=== PATIENT | female | born 1945 | race Hispanic/Latino ===

== ENCOUNTER 2020-05-08 17:12 | Emergency (ER) | payer OTHER ==
--- OUTSIDE RECORDS SUMMARY | 2020-05-08 17:15 | XMS REPORT | Continuity of Care Document ---
:1945 Author Organization [facility] t Address [address] [place] [address] Dr. Clemente. [address] [place] [address] Care Team Providers Name Role Phone DR Jyoti BAUTISTA Attending Clinician Unavailable Singer BRAY Attending Clinician Yudelka Crenshaw Attending Clinician Doctor Unassigned, Name Attending Clinician Unavailable Huey ALVARADO Attending Clinician DR Jyoti BAUTISTA Admitting Clinician Unavailable Problems This patient has no known problems. Allergies, Adverse Reactions, Alerts This patient has no known allergies or adverse reactions. Medications This patient has no known medications. Procedures This patient has no known procedures. Encounters Start End Encounter Admission Attending Care Care Encounter Source Date/Time Date/Time Type Type Clinicians Facility Department ID 2017-12-13 Inpatient C [facility] [id number] [place] 08:45:00 [facility] 2020-05-07 2020-05-07 Emergency Singer NYLUÍS [id number] 16:51:00 18:39:00 Lacho Trivedi [id number] Yazmin [id number] [place] [address] [id number] 2020-05-04 2020-05-04 Emergency ASIA Triplett [id number] 10:10:00 14:21:00 Bianca Trivedi [id number] [place] [id number] [place] [address] [id number] 2019-12-31 2019-12-31 Jameson BENZ [id number] 00:00:00 00:00:00 Only Unassigned, REZA [id number] [facility] [id number] 2019-12-17 2019-12-17 Office Huey [facility] [id number] 13:49:35 14:22:09 Visit Segun Trivedi [id number] [place] [id number] Rajesh [id number] [facility] 2017-12-13 2017-12-13 [id number] [place] 08:10:00 23:59:00 [facility] 2017-12-10 2017-12-10 [facility] [id number] [place] 10:42:00 23:59:00 [facility] Results Test Description Test Time Test Comments Results Result [facility] e Comments MRA HEAD W/O 2017-11-26 MRA brain without CONTRAST 8 contrastLocation code: 10:40:40 [id number] history: Paresthesia of the skinTechnique: 3-D [id number] MR angiography of the intracranial circulationwas performed without contrast. Volume rendered 3-D reformatted images of thevessels were obtained from source data. Findings:The terminal portions of the internal carotid arteries bifurcate into normalanterior and middle cerebral arteries. The anterior communicating artery ispatent. The basilar artery is normal in caliber and contour and terminates innormal-appearing posterior cerebral arteries. The posterior communicatingarteries are patent bilaterally. There is no focal stenosis, major branchocclusion, aneurysm, or vascular malformation.Impression: No acute abnormality. MRI BRAIN W/ AND 2017-11-26 MRI brain with and without W/O CONTRAST 8 contrastLocation code: 10:14:38 [id number] history: R20.2: PARESTHESIA OF SKINComparison: NoneTechnique: Multiplanar multisequence MR imaging of the brain was performed withand without contrast. Findings: There is no area of restricted diffusion to suggest acute or recentinfarct. There is mild generalized volume loss. Mild increased T2/FLAIR signalwithin the periventricular white matter is noted compatible with chronic smallvessel disease. There is no acute intracranial hemorrhage or extra-axial collection. There isno abnormal enhancement, mass, or lesion. There is no hydrocephalus,intracranial edema, or midline shift. The posterior fossa and internal auditory canals are unremarkable. The orbits,globes, sinuses, and skull base are unremarkable.Impression: Mild deep white matter chronic small vessel disease with otherwise no acuteintracranial abnormality. COMPREHENSIVE METABOLIC PEREIRA 2017-12-10 11:34:00 Test Item Value Reference Range Interpretation Comme nts GLUCOSE (test code = 06D) 91 mg/dL 75-100 SODIUM (test code = 01A) 139 mmol/L 136-145 POTASSIUM (test code = 01B) 3.9 mmol/L 3.6-5.1 CHLORIDE (test code = 04A) 106 mmol/L 98-107 CO2 (test code = 02A) 26 mmol/L 22-32 ANION GAP (test code = ANG) 10.9 mmol/L BUN (test code = 05D) 16 mg/dL 7-18 CREATININE (test code = 03E) 0.7 mg/dL 0.4-1.1 BUN/CREA (test code = BCR) 22 12-20 H CALCIUM (test code = 09D) 8.6 mg/dL 8.3-9.5 BILI TOTAL (test code = 11A) 0.4 mg/dL 0.2-1.0 PROTEIN (test code = 07D) 8.0 g/dL 6.4-8.2 ALBUMIN (test code = 08D) 3.8 g/dL 3.5-4.8 GLOBULIN (test code = GLB) 4.2 g/dL 1.5-3.8 H ALB/GLOB (test code = AGRR) 0.9 1.0-2.6 L ALK PHOS (test code = 35A) 78 IU/L 42-121 AST (test code = 30A) 16 IU/L <=42 ALT (test code = 31A) 20 IU/L <=78 THYROID PANEL/SCREEN (TSH)2017-12-10 11:33:00 Test Item Value Reference Range Interpretation Comments TSH (test code = A57) 2.380 uIU/mL 0.358-3.740 LIPID [id number] 11:31:00 Test Item Value Reference Range Interpretation Comments CHOLESTROL (test code = 44A) 268 mg/dL 140-200 H TRIGLYCERI (test code = 42B) 133 mg/dL <=149 HDL (test code = 83D) 56.0 mg/dL 40.0-60.0 LDL (test code = 34B) 192 mg/dL <=99 H CHL/HDL (test code = CHR) 4.8 0.0-3.4 H [id number] 11:20:00 Test Item Value Reference Range Interpretation Comments Hb A1C % (test code = HBA) 5.7 % 4.2-6.3 CBC (INCLUDES AUTOMATED DIFFERENTIAL)2017-12-10 11:03:00 Test Item Value Reference Range Interpretation Comments WBC (test code = WBC) 6.8 10\S\3/uL 4.5-11.0 RBC (test code = RBC) 4.67 10\S\6/uL 3.80-5.80 HGB (test code = HBG) 14.2 g/dL 12.0-15.5 HCT (test code = HCT) 43.5 % 35.0-44.0 MCV (test code = MCV) 93.1 fL 81.0-99.0 MCH (test code = MCH) 30.4 pg 27.0-31.0 MCHC (test code = MCHC) 32.6 g/dL 32.0-36.0 RDW (test code = RDW) 12.9 % 11.5-14.5 PLT (test code = PLT) 202 10\S\3/uL 130-400 MPV (test code = MPV) 8.8 fL 9.4-12.4 L NEUTROP # (test code = NE#) 4.1 10\S\3/uL 1.6-8.0 LYMPH # (test code = LY#) 2.0 10\S\3/uL 1.1-3.5 MONOCYTE # (test code = MO#) 0.6 10\S\3/uL 0.0-1.1 EOSINOPH # (test code = EO#) 0.1 10\S\3/uL 0.0-0.7 BASOPHIL # (test code = BA#) 0.0 10\S\3/uL 0.0-0.3 IG # (test code = IG#) 0.02 10\S\3/uL 0.00-0.06 NRBC # (test code = NRBC#) 0.00 10\S\3/uL 0.00-0.01 NEUTROPH % (test code = NE%) 60.1 % 35.0-73.0 LYMPH % (test code = LY%) 29.6 % 20.0-55.0 MONO % (test code = MO%) 8.3 % 2.5-10.0 EOSINOPH % (test code = EO%) 1.3 % 0.0-5.0 BASOPHIL % (test code = BA%) 0.4 % 0.0-2.0 IG % (test code = IG%) 0.3 % 0.0-0.8 NRBC% (test code = NRBC%) 0.0 % 0.0-0.2 MANDIFF (test code = MDIFF) NO NO RBC MORPH (test code = RBCMOR) NORMAL
[2020-05-08 18:52] LABS: Protime INR 1.05
[2020-05-08 18:53] LABS: Absolute Lymphocytes (CBC) 1.1 K/uL (0.7-4.9); Basophils % 0.6 % (0-1.3); Hematocrit 40.8 % (36.0-45.0); Lymphocytes % 11.6 % (15.3-44.8); MPV 8.3 fL (7.6-11.3); RBC Red Blood Cell Count 4.49 M/uL (3.86-4.86)
[2020-05-08 19:05] LABS: ALT/SGPT 18 U/L (12-78); Albumin 3.5 g/dL (3.4-5.0); Alkaline Phosphatase 71 U/L (45-117); BUN Blood Urea Nitrogen 20 mg/dL (7-18); Bicarbonate 25 mmol/L (21-32); Bilirubin Direct < 0.1 mg/dL (0-0.2); Bilirubin Total 0.3 mg/dL (0.2-1.0); Glucose Level 136 mg/dL (74-106); NT PRO-BNP 218 pg/mL (<450); Sodium Level 140 mmol/L (136-145); Troponin (Emerg Dept Use Only) < 0.02 ng/mL (0.0-0.045)
[2020-05-08 19:06] LABS: AST/SGOT 16 U/L (15-37); Magnesium 2.3 mg/dL (1.8-2.4)
--- NOTE | 2020-05-08 19:09 | RAD REPORT ---
EXAM DESCRIPTION: CT - Head Brain Wo Cont - 05/08/2020 6:57 pm CLINICAL HISTORY: elevated bp, pre syncope Headache, drowsiness COMPARISON: No comparisons TECHNIQUE: All CT scans are performed using dose optimization technique as appropriate and may inclu de automated exposure control or mA/KV adjustment according to patient size. FINDINGS: No intracranial hemorrhage, hydrocephalus or extra-axial fluid collection.No areas of brai n edema or evidence of midline shift. The paranasal sinuses and mastoids are clear. The calvarium is intact. IMPRESSION: No acute intracranial abnormality.
--- NOTE | 2020-05-08 19:39 | RAD REPORT ---
EXAM DESCRIPTION: RAD - Chest Single View - 05/08/2020 6:44 pm CLINICAL HISTORY: weakness, fatigue Chest pain. COMPARISON: Chest Pa And Lat (2 Views) dated 02/11/2018 FINDINGS: Portable technique limits examination quality. The lungs are grossly clear. The heart is normal in size. No displaced fractures. IMPRESSION: No acute intrathoracic process suspected.
[2020-05-08] MEDS ORDERED: ACETAMINOPHEN 325 MG TABLET ONE (20:00)
--- NOTE | 2020-05-08 20:40 | EDPHYS ---
Physician Documentation [facility] Name: Ching Whittington Age: 74 yrs Sex: Female : 1945 Arrival Date: 05/08/2020 Time: 17:16 Bed 23 Private MD: ED Physician Rober Currie HPI: 05/08 18:17 This 74 yrs old Female presents to ER via Ambulatory with complaints of Heart jmm Racing, High Blood Pressure. 18:17 Onset: The symptoms/episode began/occurred gradually, 2 day(s) ago. Modifying factors: jmm The symptoms are aggravated by The symptoms are alleviated by. Associated signs and symptoms: Pertinent positives: chest pain, lightheadedness, nausea, weakness. This is a 74 year old female with a history of hlp, that presents to the ED with complaints of elevated BP for the past 2 to 3 days. Patient states when her BP is elevated she has intermittent left sided chest pain along with lightheadedness/pre-syncope and nausea. Denies abdominal pain, vomiting, fever. Was evaluated yesterday at [place] with no acute findings. . Historical: - Allergies: 17:23 No Known Allergies; ll1 - PMHx: 17:23 High Cholesterol; ll1 - PSHx: 17:23 Cholecystectomy; ll1 - Immunization history:: Flu vaccine is not up to date. - Social history:: Smoking status: Patient denies any tobacco usage or history of. ROS: 18:17 Constitutional: Negative for fever, chills, and weight loss, Respiratory: Negative for jmm shortness of breath, cough, wheezing, and pleuritic chest pain. 18:17 Cardiovascular: Positive for chest pain. 18:17 Abdomen/GI: Positive for nausea. 18:17 Neuro: Positive for weakness. 18:17 All other systems are negative. Exam: 18:17 Constitutional: This is a well developed, well nourished patient who is awake, alert, jmm and in no acute distress. Head/Face: atraumatic. Eyes: EOMI, no conjunctival erythema appreciated ENT: Moist Mucus Membranes Neck: Trachea midline, Supple 18:17 Cardiovascular: Regular rate and rhythm. No edema appreciated Respiratory: Normal respirations, no respiratory distress appreciated Abdomen/GI: Non distended, soft Back: Normal ROM Skin: General appearance color normal MS/ Extremity: Moves all extremities, no obvious deformities appreciated, no edema noted to the lower extremities Neuro: Awake and alert, normal gait Psych: Behavior is normal, Mood is normal, Patient is cooperative and pleasant 18:17 Chest/axilla: Inspection: normal, Palpation: tenderness, that is mild, of the anterior aspect of left upper chest. 18:28 ECG was reviewed by the Attending Physician. [facility] Vital Signs: 17:20 BP 158 / 90; Pulse 98; Resp 17; Temp 97.5; Pulse Ox 99% ; Weight 82.55 kg; Height 5 ft. ll1 4 in. (162.56 cm); Pain 4/10; 18:13 BP 126 / 80; Pulse 97; Resp 18; Temp 98.3(O); Pulse Ox 97% on R/A; vg1 19:00 BP 144 / 86; Pulse 86; Resp 16; Pulse Ox 98% on R/A; vg1 21:03 BP 142 / 78; Pulse 80; Resp 16; Temp 98.0; Pulse Ox 100% on R/A; vg1 17:20 Body Mass Index 31.24 (82.55 kg, 162.56 cm) ll1 MDM: 18:15 Patient medically screened. [facility] 20:38 Data reviewed: vital signs, nurses notes. Counseling: I had a detailed discussion with [facility] the patient and/or guardian regarding: the historical points, exam findings, and any diagnostic results supporting the discharge/admit diagnosis, lab results, the need for outpatient follow up. Refusal of service: The patient/guardian displays adequate decision making capability and despite a detailed discussion of alternatives, benefits, risks, and consequences refuses: Admission to the hospital for further work-up and treatment. 20:45 ED course: [place] Syncope Negative. cp 05/08 18:16 Order name: Basic Metabolic Panel [facility] 05/08 18:16 Order name: CBC with Diff [facility] 05/08 18:16 Order name: LFT's [facility] 05/08 18:16 Order name: Magnesium [facility] 05/08 18:16 Order name: NT PRO-BNP [facility] 05/08 18:16 Order name: PT-INR; Complete Time: 19:18 [facility] 05/08 18:16 Order name: Troponin (emerg Dept Use Only); Complete Time: 19:18 [facility] 05/08 18:17 Order name: Basic Metabolic Panel; Complete Time: 19:18 [facility] 05/08 18:17 Order name: CBC with Automated Diff; Complete Time: 19:18 [facility] 05/08 18:17 Order name: Liver (Hepatic) Function; Complete Time: 19:18 [facility] 05/08 18:17 Order name: Magnesium; Complete Time: 19:18 [facility] 05/08 18:17 Order name: NT PRO-BNP; Complete Time: 19:18 [facility] 05/08 18:49 Order name: Flu [facility] 05/08 18:49 Order name: CORONAVIRUS (COVID-19) : Document "Date of Symptom Onset" if Symptomatic. [facility] 05/08 18:16 Order name: XRAY Chest (1 view); Complete Time: 19:57 [facility] 05/08 18:16 Order name: Cardiac monitoring; Complete Time: 18:29 [facility] 05/08 18:16 Order name: EKG - Nurse/Tech; Complete Time: 18:29 [facility] 05/08 18:16 Order name: IV Saline Lock; Complete Time: 18:37 [facility] 05/08 18:16 Order name: Labs collected and sent; Complete Time: 18:37 [facility] 05/08 18:16 Order name: O2 Per Protocol; Complete Time: 18:17 [facility] 05/08 18:16 Order name: O2 Sat Monitoring; Complete Time: 18:17 [facility] 05/08 18:16 Order name: CT Head Brain wo Cont; Complete Time: 19:18 [facility] 05/08 20:48 Order name: COVID-19/FLU A+B EDMS EC:28 Rate is 87 beats/min. Rhythm is regular. QRS [place] is Normal. MD interval is normal. QRS jmm interval is normal. QT interval is normal. No Q waves. T waves are Normal. No ST changes noted. Reviewed by me. Administered Medications: 20:46 CANCELLED (Physician Discretion): NS 0.9% 500 ml IV at bolus once bb Disposition: 05/08/20 20:39 Discharged to Home. Impression: Dehydration, Near Syncope, Coronavirus infection, unspecified. - Condition is Stable. - Discharge Instructions: Dehydration, Adult, Hypertension, Near-Syncope, COVID-19. - Prescriptions for ivermectin 3 mg Oral tablet - take 6 tablet by ORAL route as directed one dose now and one dose on day 3; 12 tablet. Prednisone 20 mg Oral Tablet - take 3 tablet by ORAL route once daily for 5 days; 15 tablet. Albuterol Sulfate 90 mcg/actuation - inhale 1-2 puff by INHALATION route every 4-6 hours; 1 Inhaler. - Medication Reconciliation Form, Thank You Letter, Antibiotic Education, Prescription Opioid Use form. - Follow up: Private Physician; When: 2 - 3 days; Reason: Recheck today's complaints, Continuance of care, Re-evaluation by your physician. Addendum: 05/10/2020 05:21 Co-signature as Attending Physician, Rober Currie MD I agree with the assessment and t w4 plan of care. Signatures: Dispatcher [employer] EDNV Herrera Rodrigez PA PA jmm Ballard, Brenda, RN RN bb Dennys Simpson PA PA cp Wadley, Terrence, MD MD tw4 Shadia Bhatti RN RN vg1 Rosa Elena Sanchez RN RN ll1 Corrections: (The following items were deleted from the chart) 05/08 19:48 18:50 Influenza Screen (A ordered. [facility] EDMS 19:48 18:50 CORONAVIRUS ordered. [facility] EDMS 20:46 20:22 NS 0.9% 500 ml IV at bolus once ordered. [facility] bb 20:46 20:46 NS 0.9% 500 ml IV at bolus once ordered. bb 20:47 20:39 05/08/2020 20:39 Discharged to Home. Impression: Dehydration; Near Syncope. [facility] Condition is Stable. Forms are Medication Reconciliation Form, Thank You Letter, Antibiotic Education, Prescription Opioid Use. Follow up: Private Physician; When: 2 - 3 days; Reason: Recheck today's complaints, Continuance of care, Re-evaluation by your physician. [facility] 21:06 20:47 05/08/2020 20:39 Discharged to Home. Impression: Dehydration; Near Syncope; vg1 Coronavirus infection, unspecified. Condition is Stable. Discharge Instructions: Dehydration, Adult, Hypertension, Near-Syncope. Forms are Medication Reconciliation Form, Thank You Letter, Antibiotic Education, Prescription Opioid Use. Follow up: Private Physician; When: 2 - 3 days; Reason: Recheck today's complaints, Continuance of care, Re-evaluation by your physician. [facility]
--- NOTE | 2020-05-08 20:40 | ER ---
Nurse's Notes [facility] Name: Ching Whittington Age: 74 yrs Sex: Female : 1945 Arrival Date: 05/08/2020 Time: 17:16 Bed 23 Private MD: Diagnosis: Dehydration;Near Syncope;Coronavirus infection, unspecified Presentation: 05/08 17:20 Chief complaint: Patient states: Covid 04/14 was positive. BP has been elevated for 3 ll1 days. Went to [place] yesterday, they sent her home. Nothing specific found. No fever. + nausea. No appetite. Coronavirus screen: Client denies travel out of the [place] in the last 14 days. congestion, cough unrelated to allergies, difficulty breathing, Client presents with at least one sign or symptom that may indicate coronavirus-19. Standard/surgical mask placed on the client. Ebola Screen: Patient denies travel to an Ebola-affected area in the 21 days before illness onset. Initial Sepsis Screen: Does the patient meet any 2 criteria? HR > 90 bpm. No. Patient's initial sepsis screen is negative. Does the patient have a suspected source of infection? Yes: Productive cough/pneumonia. Risk Assessment: Do you want to hurt yourself or someone else? Patient reports no desire to harm self or others. Onset of symptoms was April 07, 2020. 17:20 Method Of Arrival: Ambulatory ll1 17:20 Acuity: OLIVER 3 ll1 Historical: - Allergies: 17:23 No Known Allergies; ll1 - PMHx: 17:23 High Cholesterol; ll1 - PSHx: 17:23 Cholecystectomy; ll1 - Immunization history:: Flu vaccine is not up to date. - Social history:: Smoking status: Patient denies any tobacco usage or history of. Screenin:14 Abuse screen: Denies threats or abuse. Nutritional screening: No deficits noted. vg1 Tuberculosis screening: No symptoms or risk factors identified. Fall Risk No fall in past 12 months (0 pts). No secondary diagnosis (0 pts). IV access (20 points). Ambulatory Aid- None/Bed Rest/Nurse Assist (0 pts). Gait- Normal/Bed Rest/Wheelchair (0 pts) Mental Status- Oriented to own ability (0 pts). Total [place] Fall Scale indicates No Risk (0-24 pts). Assessment: 18:11 General: Appears in no apparent distress. comfortable, Behavior is calm, cooperative. vg1 Pain: Complains of pain in c/o headache Pain currently is 5 out of 10 on a pain scale. Neuro: Level of Consciousness is awake, alert, obeys commands, Oriented to person, place, time, situation. Neuro: Reports headache. Cardiovascular: Patient's skin is warm and dry. Respiratory: Airway is patent Respiratory effort is even, unlabored. GI: No signs and/or symptoms were reported involving the gastrointestinal system. : No signs and/or symptoms were reported regarding the genitourinary system. EENT: No signs and/or symptoms were reported regarding the EENT system. Derm: Skin is intact, is healthy with good turgor. Musculoskeletal: Circulation, motion, and sensation intact. 19:40 Reassessment: Patient appears in no apparent distress at this time. No changes from vg1 previously documented assessment. Patient and/or family updated on plan of care and expected duration. Pain level reassessed. Patient is alert, oriented x 3, equal unlabored respirations, skin warm/dry/pink. Vital Signs: 17:20 BP 158 / 90; Pulse 98; Resp 17; Temp 97.5; Pulse Ox 99% ; Weight 82.55 kg; Height 5 ft. ll1 4 in. (162.56 cm); Pain 4/10; 18:13 BP 126 / 80; Pulse 97; Resp 18; Temp 98.3(O); Pulse Ox 97% on R/A; vg1 19:00 BP 144 / 86; Pulse 86; Resp 16; Pulse Ox 98% on R/A; vg1 21:03 BP 142 / 78; Pulse 80; Resp 16; Temp 98.0; Pulse Ox 100% on R/A; vg1 17:20 Body Mass Index 31.24 (82.55 kg, 162.56 cm) ll1 ED Course: 17:16 Patient arrived in ED. mr 17:23 Triage completed. ll1 17:24 Arm band placed on Patient placed in an exam room, on a stretcher. 1 17:52 Herrera Rodrigez PA is PHCP. [facility] 17:52 Rober Currie MD is Attending Physician. [facility] 17:58 Shadia Bhatti, MELITA is Primary Nurse. vg1 18:14 Patient has correct armband on for positive identification. Bed in low position. Call vg1 light in reach. Side rails up X 1. 18:25 Missed attempt(s): 20 gauge in right Bleeding controlled, band aid applied, catheter jp3 tip intact. 18:36 Initial lab(s) drawn, by me, sent to lab. EKG done, by ED staff, reviewed by Herrera FENG X-ray(s) taken. Inserted saline lock: 22 gauge in left wrist, using aseptic technique. Blood collected. 18:44 XRAY Chest (1 view) In Process Unspecified. EDMS 18:57 CT Head Brain wo Cont In Process Unspecified. EDMS 21:04 No provider procedures requiring assistance completed. IV discontinued, intact, vg1 bleeding controlled, No redness/swelling at site. Pressure dressing applied. Administered Medications: 20:46 CANCELLED (Physician Discretion): NS 0.9% 500 ml IV at bolus once bb Outcome: 20:39 Discharge ordered by MD. naomie 21:05 Discharged to home via wheelchair. vg1 21:05 Condition: stable 21:05 Discharge instructions given to patient, Instructed on discharge instructions, follow up and referral plans. medication usage, Demonstrated understanding of instructions, follow-up care, medications, Prescriptions given X 3. 21:06 Patient left the ED. vg1 Signatures: Dispatcher [employer] EDLA Herrera Rodrigez PA PA [facility] Claduia Ortiz, Kaiden ro3 Shadia Bhatti, RN RN vg1 Rosa Elena Sanchez RN RN ll1 Courtney Whaley RN bb Corrections: (The following items were deleted from the chart) 17:24 17:20 Onset of symptoms was April 11, 2020 [place] [id number]
[2020-05-08 20:48] LABS: SARS-COV-2 RT PCR POSITIVE (NEGATIVE)
[2020-05-08 21:59] VITALS: BP 142/78; TEMP 98; O2SAT 100
== END 2020-05-08 21:06 | disposition home or self-care (01) ==
LOC: ER 17:12
DX: U07.1 COVID-19 (principal); E86.0 Dehydration; R55 Syncope and collapse; E78.00 Pure hypercholesterolemia, unspecified
CPT/HCPCS: 85025; 80048; 36415; 83735; 85610; 80076; 84484; 83880; 0240U; 70450; 71045; 99284

== ENCOUNTER 2021-09-23 09:41 | Emergency (ER) | payer OTHER ==
[2021-09-23 10:46] LABS: Absolute Lymphocytes (CBC) 1.2 K/uL (0.7-4.9); Hematocrit 42.4 % (36.0-45.0); Lymphocytes % 20.6 % (15.3-44.8); MCV 90.5 fL (80-100); MPV 7.4 fL (7.6-11.3); RBC Red Blood Cell Count 4.69 M/uL (3.86-4.86)
[2021-09-23 10:59] LABS: Protime INR 1.03
[2021-09-23 11:12] LABS: Potassium 3.8 mmol/L (3.5-5.1); Troponin High Sensitivity 4.8 pg/mL (<58.9)
--- NOTE | 2021-09-23 11:59 | RAD REPORT ---
EXAM DESCRIPTION: RAD - Chest Single View - 09/23/2021 11:49 am CLINICAL HISTORY: CHEST PAIN COMPARISON: Chest Single View dated 05/08/2020; Chest Pa And Lat (2 Views) dated 02/11/2018 FINDINGS: Lines: None. Lungs: No evidence of edema or pneumonia. Pleural: No significant pleural effusions or pneumothorax. Cardiac: The heart size is within normal limits. Bones: No acute fractures. Other: IMPRESSION: No acute cardiopulmonary disease.
[2021-09-23] MEDS ORDERED: ASPIRIN 81 MG CHEWABLE TABLET ONE (12:17)
--- NOTE | 2021-09-23 12:41 | EDPHYS ---
Physician Documentation [facility] Name: Ching Whittington Age: 76 yrs Sex: Female : 1945 Arrival Date: 09/23/2021 Time: 09:43 Bed 4 Private MD: AARON Physician Dennys Perez HPI: 09/23 10:20 This 76 yrs old Female presents to ER via Ambulatory with complaints of High 7 Blood Pressure, Chest Pain, Palpitations. 10:20 Onset: The symptoms/episode began/occurred 3 day(s) ago. 76-year-old female presents [facility] with hypertension, chest pain, and palpitations for the past 2 to 3 days. States that her highest blood pressure was 196/92 at home. Reports that the chest pain is left-sided and radiates to her left axilla and back. Reports that she takes losartan. Reports that Dr. Nava is her PCP. History of hypertension and cholecystectomy.. Historical: - Allergies: 10:16 No Known Allergies; iw - Home Meds: 10:17 losartan 25 mg oral tab 1 tab once daily [Active]; meloxicam 15 mg oral tab 1 tab once iw daily [Active]; - PMHx: 10:16 Hypertensive disorder; High Cholesterol; iw - Immunization history:: Client reports receiving the 2nd dose of the Covid vaccine. - Social history:: Smoking status: Patient denies any tobacco usage or history of. ROS: 10:20 Constitutional: Negative for fever, chills, and weight loss, ENT: Negative for injury, jh7 pain, and discharge, Neck: Negative for injury, pain, and swelling, Respiratory: Negative for shortness of breath, cough, wheezing, and pleuritic chest pain, Abdomen/GI: Negative for abdominal pain, nausea, vomiting, diarrhea, and constipation, Back: Negative for injury and pain, Skin: Negative for injury, rash, and discoloration, Neuro: Negative for headache, weakness, numbness, tingling, and seizure. 10:20 Cardiovascular: Positive for chest pain, palpitations, Negative for edema, orthopnea. 10:20 All other systems are negative. Exam: 10:20 Constitutional: This is a well developed, well nourished patient who is awake, alert, jh7 and in no acute distress. ENT: Nares patent. No nasal discharge, no septal abnormalities noted. Oropharynx with no redness, swelling, or masses, exudates, or evidence of obstruction, uvula midline. Mucous membranes moist. Cardiovascular: Regular rate and rhythm with a normal S1 and S2. No gallops, murmurs, or rubs. Normal PMI, no JVD. No pulse deficits. Respiratory: Lungs have equal breath sounds bilaterally, clear to auscultation and percussion. No rales, rhonchi or wheezes noted. No increased work of breathing, no retractions or nasal flaring. Abdomen/GI: Soft, non-tender, with normal bowel sounds. No distension or tympany. No guarding or rebound. No evidence of tenderness throughout. Back: No spinal tenderness. No costovertebral tenderness. Full range of motion. Skin: Warm, dry with normal turgor. Normal color with no rashes, no lesions, and no evidence of cellulitis. Neuro: Awake and alert, GCS 15, oriented to person, place, time, and situation. Motor strength 5/5 in all extremities. Sensory grossly intact. Normal gait. Vital Signs: 10:17 BP 174 / 82; Pulse 86; Resp 16; Temp 97.4; Pulse Ox 99% on R/A; Weight 87.09 kg; Height iw 5 ft. 4 in. (162.56 cm); 12:17 BP 148 / 84; Pulse 68; Resp 17; Pulse Ox 98% on R/A; Pain 0/10; hb 10:17 Body Mass Index 32.96 (87.09 kg, 162.56 cm) iw MDM: 10:15 Patient medically screened. [facility] 12:41 Differential diagnosis: hypertensive crisis, Acute OH, pneumonia. Data reviewed: vital [facility] signs, nurses notes, lab test result(s), EKG, radiologic studies, plain films. Data interpreted: Pulse oximetry: is 98 %. Interpretation: normal. Test interpretation: by ED physician or midlevel provider: ECG. Counseling: I had a detailed discussion with the patient and/or guardian regarding: the historical points, exam findings, and any diagnostic results supporting the discharge/admit diagnosis, the need for outpatient follow up, a research professional, to return to the emergency department if symptoms worsen or persist or if there are any questions or concerns that arise at home. ED course: Patient became asymptomatic shortly after being placed in a room. Her BP decreased to 127/68. Nitro was not given, because chest pain resolved on its own. Discussed the patient's EKG and labs. Informed her that she should follow-up with her research professional Dr. Luna, and may need her blood pressure medicine adjusted. If her symptoms return, or any new concerning symptoms develop, she should return to the ER for further care.. 09/23 10:19 Order name: Basic Metabolic Panel; Complete Time: 11:14 09/23 10:19 Order name: CBC with Diff; Complete Time: 11: 09/23 10:19 Order name: PT-INR; Complete Time: 11: 09/23 10:19 Order name: Troponin HS; Complete Time: 11: 09/23 10:19 Order name: XRAY Chest (1 view); Complete Time: 12: 09/23 10:25 Order name: NT PRO-BNP; Complete Time: 11:14 [facility] 09/23 10:19 Order name: EKG; Complete Time: 10: 09/23 10:19 Order name: Cardiac monitoring; Complete Time: 12: 09/23 10:19 Order name: EKG - Nurse/Tech; Complete Time: : 09/23 10:19 Order name: IV Saline Lock; Complete Time: : 09/23 10:19 Order name: Labs collected and sent; Complete Time: : 09/23 10:19 Order name: O2 Per Protocol; Complete Time: : 09/23 10:19 Order name: O2 Sat Monitoring; Complete Time: : EC:28 Rate is 75 beats/min. Rhythm is regular. QRS Kiel is Normal. MS interval is normal at jh7 156 msec. QRS interval is normal at 90 msec. QT interval is normal at 378 msec. No Q waves. T waves are Normal. No ST changes noted. Clinical impression: Normal ECG. Administered Medications: 11:25 Not Given (Physician Discretion): cloNIDine 0.1 mg PO once jh7 12:11 Drug: Aspirin Chewable Tablet 324 mg Route: PO; hb 12:40 Not Given (pt denies any chest pain and BP decreasedd): Nitroglycerin 0.4 mg Sublingual 7 once Disposition Summary: 09/23/21 12:41 Discharge Ordered Location: Home [facility] Problem: new [facility] Symptoms: have improved [facility] Condition: Stable 7 Diagnosis - Chest pain, unspecified jh7 Followup: [facility] - With: Private Physician - When: 2 - 3 days - Reason: Recheck today's complaints Discharge Instructions: - Discharge Summary Sheet [facility] - Nonspecific Chest Pain, Adult 7 - Hypertension, Adult jh7 Forms: - Medication Reconciliation Form [facility] - Thank You Letter [facility] Signatures: Dispatcher [employer] Dior Chappell RN RN Coni George RN RN Nohemy Contreras, RETAIL BEAUTY SPECIALIST RETAIL BEAUTY SPECIALIST [facility]
--- NOTE | 2021-09-23 12:41 | ER ---
Nurse's Notes [facility] Name: Ching Whittington Age: 76 yrs Sex: Female : 1945 Arrival Date: 09/23/2021 Time: 09:43 Bed 4 Private MD: Diagnosis: Chest pain, unspecified Presentation: 09/23 10:17 Chief complaint: Patient's son or daughter states: her BP was high for a few days, and iw started getting chest pains when her BP is high. Coronavirus screen: At this time, the client does not indicate any symptoms associated with coronavirus-19. Ebola Screen: Patient negative for fever greater than or equal to 101.5 degrees Fahrenheit, and additional compatible Ebola Virus Disease symptoms Patient denies exposure to infectious person. Patient denies travel to an Ebola-affected area in the 21 days before illness onset. No symptoms or risks identified at this time. Initial Sepsis Screen: Does the patient meet any 2 criteria? No. Patient's initial sepsis screen is negative. Does the patient have a suspected source of infection? No. Patient's initial sepsis screen is negative. Risk Assessment: Do you want to hurt yourself or someone else? Patient reports no desire to harm self or others. Onset of symptoms was September 20, 2021. 10:17 Method Of Arrival: Ambulatory iw 10:17 Acuity: OLIVER 3 iw Historical: - Allergies: 10:16 No Known Allergies; iw - Home Meds: 10:17 losartan 25 mg oral tab 1 tab once daily [Active]; meloxicam 15 mg oral tab 1 tab once iw daily [Active]; - PMHx: 10:16 Hypertensive disorder; High Cholesterol; iw - Immunization history:: Client reports receiving the 2nd dose of the Covid vaccine. - Social history:: Smoking status: Patient denies any tobacco usage or history of. Screenin:18 Abuse screen: Denies threats or abuse. Denies injuries from another. Nutritional hb screening: No deficits noted. Nutritional screening: No deficits noted. Tuberculosis screening: No symptoms or risk factors identified. Fall Risk None identified. Assessment: 12:17 General: Appears in no apparent distress. Behavior is calm, cooperative. Pain: Denies hb pain. Neuro: Level of Consciousness is awake, alert, obeys commands, Oriented to person, place, time, situation. Cardiovascular: Patient's skin is warm and dry. Respiratory: Respiratory effort is even, unlabored, Respiratory pattern is regular, symmetrical. GI: No signs and/or symptoms were reported involving the gastrointestinal system. : No signs and/or symptoms were reported regarding the genitourinary system. EENT: No signs and/or symptoms were reported regarding the EENT system. Derm: Skin is pink, warm \T\ dry. Musculoskeletal: No signs and/or symptoms reported regarding the musculoskeletal system. Vital Signs: 10:17 BP 174 / 82; Pulse 86; Resp 16; Temp 97.4; Pulse Ox 99% on R/A; Weight 87.09 kg; Height iw 5 ft. 4 in. (162.56 cm); 12:17 BP 148 / 84; Pulse 68; Resp 17; Pulse Ox 98% on R/A; Pain 0/10; hb 10:17 Body Mass Index 32.96 (87.09 kg, 162.56 cm) iw ED Course: 09:43 Patient arrived in ED. rg4 10:14 Nohemy Contreras FNP is PHCP. jh7 10:14 Dennys Perez MD is Attending Physician. jh7 10:17 Arm band placed on. iw 10:18 Triage completed. iw 10:38 NT PRO-BNP Sent. mb7 10:38 Basic Metabolic Panel Sent. mb7 10:38 Troponin HS Sent. mb7 10:38 CBC with Diff Sent. mb7 10:38 PT-INR Sent. mb7 10:38 Inserted saline lock: 20 gauge in left antecubital area, using aseptic technique. Blood mb7 collected. 10:38 EKG done, by ED staff, reviewed by Nohemy ALVAREZ. mb7 11:51 XRAY Chest (1 view) In Process Unspecified. EDMS 12:07 Coni George, RN is Primary Nurse. hb 12:18 Patient has correct armband on for positive identification. Placed in gown. Bed in low hb position. Client placed on continuous cardiac and pulse oximetry monitoring. NIBP monitoring applied. 12:55 No provider procedures requiring assistance completed. IV discontinued, intact, hb bleeding controlled, No redness/swelling at site. Administered Medications: 11:25 Not Given (Physician Discretion): cloNIDine 0.1 mg PO once jh7 12:11 Drug: Aspirin Chewable Tablet 324 mg Route: PO; hb 12:40 Not Given (pt denies any chest pain and BP decreasedd): Nitroglycerin 0.4 mg Sublingual jh7 once Medication: 12:18 VIS not applicable for this client. hb Outcome: 12:41 Discharge ordered by . hattie 12:55 Discharged to home ambulatory, with family. hb 12:55 Condition: stable 12:55 Discharge instructions given to patient, family, Instructed on discharge instructions, follow up and referral plans. Demonstrated understanding of instructions, follow-up care, medications. 13:01 Patient left the ED. iw Signatures: Dispatcher [employer] EDDior Garcia RN RN Coni George RN RN hb Garcia, Rubi rg4 Claudia Sawant 7 Nohemy Contreras FNP FNP 7
[2021-09-23 13:50] VITALS: TEMP 97.4
[2021-09-23 13:52] VITALS: BP 148/84; O2SAT 98
--- NOTE | 2021-09-26 12:29 | EKG ---
Test Date: 2021-09-23 Test Time: 10:22:54 International Marketing Intern: MB MEASUREMENT RESULTS: Intervals: Rate: 75 TN: 156 QRSD: 90 QT: 378 QTc: 422 [place]: P: 46 TN: 156 QRS: -6 T: 26 INTERPRETIVE STATEMENTS: Normal sinus rhythm Normal ECG No previous ECG available for comparison Electronically Signed On 09-26-21 12:25:08 CDT by Rei Sterling
== END 2021-09-23 13:01 | disposition home or self-care (01) ==
LOC: ER 09:41
DX: R07.89 Other chest pain (principal); I10 Essential (primary) hypertension; E78.00 Pure hypercholesterolemia, unspecified
CPT/HCPCS: 36415; 71045; 80048; 83880; 84484; 85025; 85610; 93005; 99284